=== PATIENT | female | born 1980 | race Caucasian/White ===

== ENCOUNTER 2023-12-16 06:10 | Day surgery (SDC) | payer MEDICARE, OTHER ==
--- NOTE | 2023-12-15 08:34 | P.HPOR ---
History of Present Illness H&P Date: 12/15/23 Chief Complaint: Left knee pain Patient is a 43-year-old female presents with progressive left knee pain for the past year. She has anterolateral pain with weightbearing patient was swelling and stiffness. She has intermittent buckling. She is having night symptoms. She's tried medications, bracing, in addition to an injection without much relief. She does have a history of an arthroscopy 10 years ago. She ambulates most the time with an electric scooter. Review of Systems Per HPI Past Medical History Past Medical History: Asthma, Musculoskeletal Disorder Additional Past Medical History / Comment(s): hereditary spastic paraplegia- affects walking-uses scooter or crutch, hx. of falls History of Any Multi-Drug Resistant Organisms: None Reported Past Surgical History: Orthopedic Surgery, Uterine Ablation Additional Past Surgical History / Comment(s): arthroscopy left knee, cysts removed shoulder blade & left breast Past Anesthesia/Blood Transfusion Reactions: No Reported Reaction Smoking Status: Former smoker - Past Family History Father Additional Family Medical History / Comment(s): hereditary Medications and Allergies Home Medications Medication Instructions Recorded Confirmed Type Albuterol Inhaler [Ventolin Hfa 1 - 2 puff INHALATION Q6H PRN 12/14/23 12/14/23 History Inhaler] Clindamycin Topical Soln 1 applic TOPICAL DIRECTED PRN 12/14/23 12/14/23 History [Cleocin-T Topical Soln] DULoxetine HCL [Cymbalta] 30 mg PO DAILY 12/14/23 12/14/23 History Ibuprofen [Motrin] 600 mg PO Q6HR PRN 12/14/23 12/14/23 History Allergies Allergy/AdvReac Type Severity Reaction Status Date / Time No Known Allergies Allergy Verified 12/14/23 11:56 Physical Examination - Knee left Appearance: effusion Effusion grade: grade 1 Tenderness with palpation: lateral Pain: throughout ROM Gait: limping ROM: extension: -15 degrees ROM: flexion: 90 degrees Crepitus with motion: Yes Strength: extension: 5/5 Strength: flexion: 5/5 Meniscal tests: lateral meniscal tests: positive, lateral joint line pain: positive Results The patient is a well-developed well-nourished female approximately 5 foot 9, 155 pounds of mesomorphic habitus. HEENT exam is nonfocal, neck supple. She has painless passive motion of her left hip. Straight leg raise is negative. She is tender about the lateral joint line of the left knee. Collaterals are stable, Cheo was negative, Jailyn's elicits lateral pain. She has genu valgum alignment. Her distal neurovascular appears intact in the left lower extremity. - Diagnostic results Knee MRI: image reviewed (MRI report left knee shows evidence of anterolateral meniscal tear.) Assessment and Plan Assessment: Left knee internal derangementsymptomatic meniscal tear History of hereditary spastic paraplegia Plan: I talked to the patient at length regarding her condition along with treatment options. At this point she notes she is quite symptomatic despite conservative measures. After a discussion she opts to proceed with surgery. We will plan to proceed with arthroscopic evaluation of the left knee with possible partial lateral meniscectomy. Risks and benefits were discussed at length in layman's terms. We will likely perform that as an outpatient procedure.
[2023-12-16] MEDS ORDERED: SCOPOLAMINE 1 MG/72 HR PATCH TRANSDERM ONE (06:43)
[2023-12-16] MEDS ORDERED: MIDAZOLAM 2 MG/2 ML VIAL IV PRN (07:00)
[2023-12-16] MEDS: ONDANSETRON 4 MG/2 ML VIAL IVP ONE (07:23)
[2023-12-16] MEDS: DEXAMETHASONE SOD PHOSPHATE 4 MG/ML 1 ML VIAL IV ONE (07:23)
[2023-12-16] MEDS: LACTATED RINGERS 1,000 ML IV SCH (07:25)
[2023-12-16] MEDS ORDERED: PROPOFOL 10 MG/ML 20 ML VIAL IV ONE (07:25)
[2023-12-16] MEDS ORDERED: MIDAZOLAM 2 MG/2 ML VIAL ONE (07:25)
[2023-12-16] MEDS ORDERED: fentaNYL (PF) 50 MCG/ML 2 ML AMP ONE (07:25)
[2023-12-16] MEDS ORDERED: LIDOCAINE 1% INJ 10MG/ML (20 ML MDV) ONE (07:25)
[2023-12-16] MEDS ORDERED: ePHEDrine 50 MG/ML 1 ML VIAL ONE (07:25)
[2023-12-16] MEDS: IV FLUID CONTINUATION 1,000 ML IV ONE ×3 (07:27→10:35)
[2023-12-16 07:31] VITALS: RESP 16
--- NOTE | 2023-12-16 08:14 | P.OP ---
Date of Procedure: 12/16/23 Preoperative Diagnosis: Left knee internal derangement Postoperative Diagnosis: Left knee anterior lateral meniscal tear Procedure(s) Performed: Left knee arthroscopic partial lateral meniscectomy Anesthesia: BOBOA Surgeon: Fidel Ogden Estimated Blood Loss (ml): 10 Pathology: none sent Condition: stable Disposition: PACU Indications for Procedure: The patient is a 43-year-old female who presents with progressive left knee pain and mechanical symptoms despite conservative measures. A discussion of the risks and benefits of operative intervention versus continued conservative measures was made with the patient. She opted to proceed with surgery. Operative risks include infection, neurovascular injury, development of blood clots, possible incomplete resolution of symptoms, possible worsening of symptoms and need for subsequent procedures was discussed. Informed consent was obtained. Operative Findings: As below Description of Procedure: The patient was brought to the operating room, and after induction of general anesthesia examined the left knee. Collaterals were stable, Cheo was negative, and posterior drawer was negative. The left lower extremity was prepped and draped in a normal fashion. A superior lateral portal was made through a 3 mm skin incision superior and lateral to the patella. This was used for outflow. A lateral portal was made through a 5 mm vertical skin incision lateral to the patella tendon above the joint line. Diagnostic arthroscopy was performed. On inspection of the medial compartment, diffuse grade 2 chondral changes were noted however no loose chondral fragments were noted. No definite meniscal pathology was noted. On inspection of the notch, the anterior cruciate ligament appeared to be intact. On inspection of the lateral compartment, a complex tear involving the anterior horn of the lateral meniscus in the whitered junction was noted. This was not amenable to repair. This attributed back to stable base with motorized jane and straight baskets. The remaining lateral meniscus was stable and intact. Grade 2 chondral changes were noted in the lateral compartment. On inspection of the patellofemoral articulation, there was chondral fibrillation however no loose chondral fragments. The gutters were clear debris. The knee was then thoroughly irrigated. The portals were closed with Steri-Strips. A sterile dressing was applied in addition to a compression stocking. The patient was awoken from general anesthesia and transferred to recovery room in good condition. Blood loss was estimated at 10 mL. No complications were incurred.
[2023-12-16 08:20] VITALS: TEMP 97.5
[2023-12-16] MEDS: HYDROmorphone 0.5 MG/0.5 ML SYRINGE IVP PRN (08:28)
[2023-12-16] MEDS: HYDROcodone/APAP 5-325MG 1 EACH TAB PO STA (09:34)
[2023-12-16 10:06] VITALS: BP 111/69; PULSE 76
== END 2023-12-16 10:53 | disposition home or self-care (01) ==
LOC: OR 06:10
PROVIDERS: ATTEND Orthopaedic Surgery
DX: M23.92 Unspecified internal derangement of left knee
CPT/HCPCS: 81025